=== PATIENT | male | born 1985 | race Caucasian/White ===

== ENCOUNTER 2016-06-28 15:36 | Emergency (ER) | payer OTHER ==
[2016-06-28 15:41] VITALS: BP 139/77; PULSE 81; TEMP 98.4; BMI 32.1
[2016-06-28] MEDS ORDERED: IBUPROFEN 600 MG TABLET (FP) PO ONE ×2 (17:25→17:28)
--- NOTE | 2016-06-28 17:30 | PDOC ---
History of Present Illness - General Chief Complaint: Injury Stated Complaint: RT HAND SWOLLEN Time Seen by Provider: 06/28/16 17:20 History Source: Patient Exam Limitations: No Limitations - History of Present Illness Initial Comments: 06/28/16 17:28 Chief complaint: Right wrist pain History of present illness: Pt. is a 30 year old male with no significant medical history here today c/o pain to rt. medial wrist with a superfical abrasion. Pt. reports that yesterday a heavy metal door closed hitting his rt. medial wrist. Pt. today is worse with swelling of rt. wrist, pain is worse with use of rt. hand and movement of fingers. He denies any numbness of rt. hand or wrist. 06/28/16 17:36 06/28/16 17:40 Occurred: reports: yesterday Severity: reports: moderate (rt. wrist ) Pain Location: reports: upper extremity (right wrist medial aspect, ) Method of Injury: Yes: direct blow (by a metla door ) Modifying Factors: improves with: immobilization (rt. and fingers rt. hand ) Past History - Past Medical History Allergies/Adverse Reactions: Allergies Allergy/AdvReac Type Severity Reaction Status Date / Time No Known Allergies Allergy Verified 06/28/16 15:40 Home Medications: Ambulatory Orders Ibuprofen [Motrin -] 600 mg PO Q6H PRN #21 tablet 06/28/16 Asthma: Yes - Immunization History Immunization Up to Date: Yes - Psycho/Social/Smoking Cessation Hx Anxiety: No Suicidal Ideation: No Smoking Status: No Smoking History: Never smoked Have you smoked in the past 12 months: No Number of Cigarettes Smoked Daily: 2 Information on smoking cessation initiated: No 'Breaking Loose' booklet given: 04/19/14 Hx Alcohol Use: No Drug/Substance Use Hx: No Substance Use Type: None Review of Systems - Review of Systems Able to Perform ROS?: Yes Constitutional: No: Symptoms Reported HEENTM: No: Symptoms Reported Respiratory: No: Symptoms reported Cardiac (ROS): No: Symptoms Reported ABD/GI: No: Symptoms Reported Musculoskeletal: Yes: Joint Pain (rt. medial wrist ), Joint Swelling (rt. wrist) Integumentary: Yes: Other (abrasion rt. medial wrist quarter size) Neurological: No: Symptoms reported *Physical Exam - Vital Signs Last Vital Signs Temp Pulse Resp BP Pulse Ox 98.4 F 81 18 139/77 99 06/28/16 15:38 06/28/16 15:38 06/28/16 15:38 06/28/16 15:38 06/28/16 15:38 - Physical Exam General Appearance: Yes: Appropriately Dressed Comments:: 06/28/16 23:14 right radial pulse 4 + Extremity: positive: Normal Capillary Refill, Normal Range of Motion (rt. wrist , all digits rt. hand ), Tender (rt. wrist ), Swelling (right wrist ) Integumentary: positive: Other (abrasion quarter size rt. medial wrist) Neurologic: positive: Normal Response, Respond to painful stimul (rt. wrist, hand ), Responsive. negative: Numbness, Sensory Deficit Procedures - Consent Consent obtained: From Patient - Splinting Splint Location: Right: Wrist Dean Bandage: 3" Sling: No Complications: No Medical Decision Making - Medical Decision Making 06/28/16 17:43 Pt. is a 30 year old male with no significant medical history here today c/o pain to rt. medial wrist with a superfical abrasion. Pt. reports that yesterday a heavy metal door closed hitting his rt. medial wrist. Pt. today is worse with swelling of rt. wrist, pain is worse with use of rt. hand and movement of fingers. He denies any numbness of rt. hand or wrist. R/O fracture rt.wrist superfical abrasion rt. medial wrist PLAN: ibuprofen 600 mg po now xray right wrist and hand no fracture noted 06/28/16 23:15 *DC/Admit/Observation/Transfer Diagnosis at time of Disposition: Abrasion Contusion of wrist, right Qualifiers: Encounter type: initial encounter Qualified Code(s): S60.211A - Contusion of right wrist, initial encounter - Discharge Dispostion Disposition: HOME Condition at time of disposition: Stable - Prescriptions Prescriptions: Ibuprofen [Motrin -] 600 mg PO Q6H PRN #21 tablet PRN Reason: Pain - Referrals Referrals: Toney Rodriguez MD [Staff Physician] - - Patient Instructions Additional Instructions: apply ice to right wrist every 2 hours while awake for 15 minutes each time apply dean wrap to right wrist during the day follow up with orthopedist if pain continues apply bacitracin ointment to abrasion twice daily after cleaning with antibacterial soap Patient voiced understanding of discharge instructions
== END 2016-06-28 18:17 | disposition home or self-care (01) ==
LOC: JERFT 15:36
DX: S60.211A Contusion of right wrist, initial encounter (principal); S60.811A Abrasion of right wrist, initial encounter; W22.8XXA Striking against or struck by other objects, initial encounter; Y93.89 Activity, other specified; Y92.89 Other specified places as the place of occurrence of the external cause
CPT/HCPCS: 73110-TC-RT; 73130-TC-RT; 99281-25

== ENCOUNTER 2017-12-02 21:58 | Emergency (ER) | payer OTHER ==
[2017-12-02 22:16] VITALS: BP 153/97; PULSE 65; TEMP 98.5; BMI 33.9
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
== END 2017-12-03 02:30 | disposition home or self-care (01) ==
LOC: JERFT 21:58 → JER 21:58
PROC: 2W3CX1Z Immobilization of Right Lower Arm using Splint (ICD-10-PCS; principal; 2017-12-02)
DX: S62.336A Displaced fracture of neck of fifth metacarpal bone, right hand, initial encounter for closed fracture (principal); W51.XXXA Accidental striking against or bumped into by another person, initial encounter; Y93.89 Activity, other specified; Y92.89 Other specified places as the place of occurrence of the external cause; Y99.0 Civilian activity done for income or pay
CPT/HCPCS: 29125; 73110-TC-RT-FY; 73130-TC-RT-FY; 99281-25

== ENCOUNTER 2017-12-11 09:57 | Day surgery (SDC) | payer OTHER ==
[2017-12-09 10:36] VITALS: BMI 33.9
[2017-12-11] MEDS ORDERED: ROPIVACAINE HCL 0.5% 30ML VIAL ONE (11:26)
[2017-12-11] MEDS ORDERED: MIDAZOLAM HCL 2 MG/2 ML SINGLE DOSE VIAL ONE (11:26)
[2017-12-11] MEDS ORDERED: ceFAZolin SODIUM 1 GM VIAL ONE (13:41)
[2017-12-11] MEDS ORDERED: PROPOFOL 20 ML ONE ×2 (13:41→13:47)
[2017-12-11] MEDS ORDERED: DEXAMETHASONE SOD PHOSPHATE 4 MG/1 ML VIAL ONE (14:44)
[2017-12-11] MEDS ORDERED: KETOROLAC TROMETHAMINE 30 MG/1 ML VIAL ONE (14:44)
[2017-12-11] MEDS ORDERED: ONDANSETRON 4 MG/2 ML VIAL ONE ×2 (14:44→15:20)
[2017-12-11] MEDS ORDERED: LIDOCAINE HCL/PF 2% SDV 5ML VIAL ONE (14:48)
[2017-12-11] MEDS ORDERED: ONDANSETRON 4 MG/2 ML VIAL IVPUSH PRN (14:53)
[2017-12-11] MEDS ORDERED: oxyCODONE HCL 5 MG TABLET PO PRN (14:53)
[2017-12-11] MEDS ORDERED: LACTATED RINGERS SOLUTION 1,000 ML IV SCH (15:00)
[2017-12-11 16:17] VITALS: TEMP 97.5
[2017-12-11 16:54] VITALS: BP 142/85; PULSE 57
--- NOTE | 2017-12-15 11:50 | OP ---
DATE OF OPERATION: 12/11/2017 PREOPERATIVE DIAGNOSES: 1. Right hamate fracture. 2. Right 4th metacarpal fracture. 3. Right complex, multiple carpometacarpal dislocations. POSTOPERATIVE DIAGNOSES: 1. Right hamate fracture. 2. Right 4th metacarpal fracture. 3. Right complex, multiple carpometacarpal dislocations. OPERATIVE PROCEDURE: 1. Open reduction/internal fixation of right hamate fracture. 2. Open reduction/internal fixation of right 4th metacarpal fracture. 3. Open reduction/internal fixation of complex, multiple carpometacarpal dislocations, right hand. SURGEON: Aidee Ignacio MD VENTURE CAPITAL ANALYST: HARDY Gold ANESTHESIA: Regional and general. COMPLICATIONS: None. ESTIMATED BLOOD LOSS: Minimal. INDICATION FOR PROCEDURE: The patient is a 32-year-old male with the above findings indicated for operative treatment. Risks, benefits, alternatives were discussed with the patient at length and proper informed consent was obtained. PROCEDURE: After proper identification of the patient and correct operative site, the patient was taken to operating room and placed supine on the operating table with prominences well-padded. Anesthesia was provided by the anesthesiologist, intravenous antibiotics were given, timeout procedure was performed. The right upper extremity was prepped and draped in the usual sterile fashion and a well-padded tourniquet was placed over the sterile prep. Esmarch bandage was used to exsanguinate the right upper extremity and the tourniquet inflated to 250 mmHg. A longitudinal incision was made in-line with the 4th and 5th carpometacarpal joints. The incision was taken sharply through the skin with blunt and sharp dissection through the subcutaneous tissues. The capsule of the 4th and 5th carpometacarpal joints was opened and the dislocations and fractures were noted. The 4th and 5th carpometacarpal and 4th metacarpal fractures were reduced into satisfactory position and then K-wires were placed across the 5th metacarpal, into the 4th metacarpal, and into the 3rd metacarpal, securing the reduction of the carpometacarpal joints as well as the 4th metacarpal. The hamate fracture was then reduced, obtaining intraarticular alignment, and this was held with an OsteoMed dorsal plate 1.6 mm. This was secured with multiple locking and nonlocking screws. Of note, in order to get the fracture properly buttressed, the angle of the plate was turned obliquely, which required close to the top of the capitohamate joint. Clinically, the screws were clearly not in the joint, although radiographs indicated possible penetration. It was decided due to the lack of mobility of this joint that the benefit of leaving the plate in at this time at this position outweighed any risks. The wound was then irrigated with copious amounts of normal saline. Final x-rays were taken to confirm the proper reduction of fracture and sizing of hardware. The wound was irrigated with saline and repaired, including the capsule, with 3-0 Vicryl and 4-0 nylon. Sterile dressings and a splint were placed. The pins were bent and cut short outside of the skin. The patient was reversed from anesthesia and brought to the recovery room in stable condition. He tolerated the procedure well. Splint had been placed prior to awakening the patient. James Pulliam, the occupational therapist assistant, was integral throughout the procedure. The procedure could not have been performed without a skilled operative occupational therapist assistant. AIDEE IGNACIO M.D. [id number]
== END 2017-12-11 16:50 | disposition home or self-care (01) ==
LOC: FASU 09:57
PROVIDERS: ATTEND Orthopaedic Surgery Hand Surgery
PROC: 0PSP04Z Reposition Right Metacarpal with Internal Fixation Device, Open Approach (ICD-10-PCS; 2017-12-11)
PROC: 0RSS04Z Reposition Right Carpometacarpal Joint with Internal Fixation Device, Open Approach (ICD-10-PCS; 2017-12-11)
PROC: 0PSM04Z Reposition Right Carpal with Internal Fixation Device, Open Approach (ICD-10-PCS; principal; 2017-12-11 11:30)
DX: S62.141A Displaced fracture of body of hamate [unciform] bone, right wrist, initial encounter for closed fracture (principal); S62.304A Unspecified fracture of fourth metacarpal bone, right hand, initial encounter for closed fracture; S63.054A Dislocation of other carpometacarpal joint of right hand, initial encounter; X58.XXXA Exposure to other specified factors, initial encounter; Y93.9 Activity, unspecified; Y92.9 Unspecified place or not applicable
CPT/HCPCS: 73130-TC-RT-FY; 94760

== ENCOUNTER 2018-08-08 06:36 | Emergency (ER) | payer OTHER ==
[2018-08-08 06:48] VITALS: BMI 33.9
[2018-08-08] MEDS ORDERED: morphine CARPU-JECT 4 MG/1 ML DISP.SYRIN IVPUSH ONE ×2 (08:42→10:15)
[2018-08-08] MEDS ORDERED: morphine SULFATE 4 MG/ML VIAL ONE ×2 (09:04→10:27)
[2018-08-08 09:29] LABS: BASO % 0.7 % (0-2.0); EOS % 4.4 % (0-4.5); HEMATOCRIT 41.6 % (35.4-49); HEMOGLOBIN 14.2 GM/dL (11.7-16.9); LYMPH % 33.2 % (8-40); MCH 28.8 pg (25.7-33.7); MCHC 34.2 g/dl (32.0-35.9); MEAN CELL VOLUME 84.2 fl (80-96); MONO % 11.2 % (3.8-10.2); NEUT % 50.5 % (42.8-82.8); PLATELET COUNT 323 K/MM3 (134-434); RBC 4.94 M/mm3 (4.00-5.60); RDW 13.9 % (11.9-15.9); WHITE BLOOD COUNT 7.3 K/mm3 (4.0-10.0)
[2018-08-08 09:37] LABS: INR 0.99 (0.83-1.09); PROTHROMBIN TIME (PATIENT) 11.7 SEC (9.7-13.0)
[2018-08-08 09:39] LABS: ACTIVATED PTT 28.1 SECONDS (25.2-36.5)
[2018-08-08 09:53] LABS: ALK PHOS 62 U/L (45-117); ANION GAP 5 MMOL/L (8-16); BILIRUBIN,TOTAL 0.5 mg/dL (0.2-1); BLOOD UREA NITROGEN 7 mg/dL (7-18); CHLORIDE 105 mmol/L (98-107); CO2 27 mmol/L (21-32); CREATININE 0.6 mg/dL (0.55-1.3); GLUCOSE,RANDOM 93 mg/dL (74-106); POTASSIUM 4.7 mmol/L (3.5-5.1); SGOT/AST 26 U/L (15-37); SGPT/ALT 34 U/L (13-61); SODIUM 138 mmol/L (136-145); TOT PROT 7.4 g/dl (6.4-8.2)
[2018-08-08 11:50] VITALS: TEMP 97.8
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
[2018-08-08] MEDS ORDERED: KETOROLAC TROMETHAMINE 30 MG/1 ML VIAL IVPUSH ONE (12:44)
[2018-08-08] MEDS ORDERED: KETOROLAC TROMETHAMINE 30 MG/1 ML VIAL ONE (13:24)
[2018-08-08 14:46] VITALS: BP 115/65; PULSE 71
== END 2018-08-08 14:46 | disposition home or self-care (01) ==
LOC: JER 06:36
PROC: 3E0333Z Introduction of Anti-inflammatory into Peripheral Vein, Percutaneous Approach (ICD-10-PCS; principal; 2018-08-08)
PROC: 3E033NZ Introduction of Analgesics, Hypnotics, Sedatives into Peripheral Vein, Percutaneous Approach (ICD-10-PCS; 2018-08-08)
DX: J98.11 Atelectasis (principal); S20.212A Contusion of left front wall of thorax, initial encounter; V87.8XXA Person injured in other specified noncollision transport accidents involving motor vehicle (traffic), initial encounter; Y93.89 Activity, other specified; Y92.410 Unspecified street and highway as the place of occurrence of the external cause
CPT/HCPCS: 36415; 71046-TC-FY; 71250-TC; 74177-TC; 80053; 83605; 85025; 85610; 85730; 96374; 96375; 96376; 99283-25

== ENCOUNTER 2019-09-04 21:36 | Emergency (ER) | payer OTHER ==
[2019-09-04 21:47] VITALS: BP 116/77; PULSE 79; TEMP 97.5; BMI 32.5
[2019-09-04] MEDS ORDERED: KETOROLAC TROMETHAMINE 30 MG/1 ML VIAL IM ONE (22:42)
--- NOTE | 2019-09-04 22:49 | PDOC ---
History of Present Illness - General Chief Complaint: Back Pain Stated Complaint: BACK PAIN Time Seen by Provider: 09/04/19 22:06 History Source: Patient Exam Limitations: No Limitations - History of Present Illness Initial Comments: 09/04/19 22:44 CHIEF COMPLAINT: Lower back pain HISTORY OF PRESENT ILLNESS: 34-year-old male with history of slipped disc in the lumbar spine presents emergency department for evaluation of lower back pain shooting down the back of his right leg. He denies any neurosensory deficits, incontinence of bladder or bowel, urinary retention, saddle anesthesia, foot drop, history of IV drug use or cancer. Patient reports she has been sleeping on a couch the past 2 nights as his son is sick and is sleeping in his bed. 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 Reports he does not sit on his wallet. REVIEW OF SYSTEMS: GENERAL: Afebrile, denies any weakness RESPIRATORY: No cough, wheezing, or hemoptysis. CARDIAC: No chest pain or shortness of breath MUSCULOSKELETAL: Pain to generalized lower back. No point tenderness. Pain worse on right than left. SKIN : No erythema, no bruising, no deformity. GI/: Denies any abdominal pain, no urinary difficulty, incontinence or urinary retention. RECTAL: Denies any difficulty this A.m. NEUROLOGICAL: Denies any numbness or tingling. No neurosensory deficits. PHYSICAL EXAM: GENERAL: The patient is awake, alert, and fully oriented, in no acute distress. RESPIRATORY: Lungs clear bilaterally, no rhonchi wheezes or crackles CARDIAC: S1-S2 audible, no murmur rub or gallop MUSCULOSKELETAL: Pain to generalized lower back, nonradiating, no tingling or sensory deficit. Less than 2 second cap refill, +2 pedal pulses. No spinal point tenderness. Normal reflexive and no deficits to sensation or strength. GI/: Abdomen soft, nontender, nondistended. No rebound tenderness. No masses palpable. RECTAL: Deferred patient with no neurological findings SKIN: Warm, Dry, normal turgor, no erythema, no edema no bruising. Past History - Past Medical History Allergies/Adverse Reactions: Allergies Allergy/AdvReac Type Severity Reaction Status Date / Time No Known Allergies Allergy Verified 09/04/19 21:43 Home Medications: Ambulatory Orders Oxycodone HCl/Acetaminophen [Percocet 5-325 mg Tablet] 1 tab PO Q6H PRN #15 tablet MDD 3 08/08/18 Methylprednisolone [Medrol Dose Benjamin] 4 mg PO ASDIR #21 tablet 09/05/19 Anemia: No Asthma: Yes (CHILDHOOD) Cancer: No Cardiac Disorders: No CVA: No COPD: No CHF: No Dementia: No Diabetes: No GI Disorders: No Disorders: No HTN: No Hypercholesterolemia: No Liver Disease: No Thyroid Disease: No - Immunization History Immunization Up to Date: Yes - Psycho Social/Smoking Cessation Hx Smoking Status: No Smoking History: Never smoked Have you smoked in the past 12 months: Yes Number of Cigarettes Smoked Daily: 2 If you are a former smoker, when did you quit?: SMOKED "SOCIALLY" A LONG TIME AGO 'Breaking Loose' booklet given: 04/19/14 Hx Alcohol Use: No Drug/Substance Use Hx: No Substance Use Type: Alcohol Hx Substance Use Treatment: No *Physical Exam - Vital Signs Last Vital Signs Temp Pulse Resp BP Pulse Ox 97.5 F L 79 18 116/77 99 09/04/19 21:40 09/04/19 21:40 09/04/19 21:40 09/04/19 21:40 09/04/19 21:40 Medical Decision Making - Medical Decision Making 09/04/19 22:48 A/P: 34-year-old male with acute right-sided back pain radiating down the back of his right leg No CVA tenderness noted Patient denies urinary symptoms Most likely lower back pain with sciatica but will get a urine analysis- low threshold for imaging if blood is present Toradol 30 mg IM now Reassess 09/04/19 23:56 Patient minimal relief of pain after receiving Toradol. Patient has not sitting down and has been restless. While patient has not given us a urine sample I will get a noncontrast CT of the abdomen and pelvis to rule out kidney stone. Reassess 09/05/19 01:18 CT scan is read by imaging on-call: Lower chest: Within normal limits. Abdomen: Liver-within normal limits Bile ducts-within normal limits Gallbladder within normal limits Pancreas within normal limits Spleen-small subcapsular calcification with adjacent small subcapsular fluid collection likely reflecting a sequela of remote healed injury. Adrenals within normal limits Kidneys no evidence of hydronephrosis or nephrolithiasis. Stomach within normal limits Bowel no evidence of small bowel obstruction or mass. Normal appendix is identified. Reproductive organs within normal limits Bladder decompressed Aorta is within normal limits without aneurysm Retroperitoneum within normal limits Bones no suspicious osseous lesions. Lidocaine patch Discharge home to follow-up with primary doctor for reevaluation. I discussed the physical exam findings, ancillary test results and final diagnoses with the patient. I answered all of the patient's questions. The patient was satisfied with the care received and felt comfortable with the discharge plan and treatment plan. The patient will call their primary care physician within 24 hours to arrange follow-up and will return to the Emergency Department with any new, persistent or worsening symptoms. Portions of this note have been documented using voice recognition software. As a result, errors may occur in the recapper process. Effort has been made to correct all grammatical and recapper error, but some may have been missed which may produce sporadic inaccurate recapper or nonsensical phrases. Discharge - Discharge Information Problems reviewed: Yes Clinical Impression/Diagnosis: Lower back pain Qualifiers: Chronicity: acute Back pain laterality: right Sciatica presence: with sciatica Sciatica laterality: sciatica of right side Qualified Code(s): M54.41 - Lumbago with sciatica, right side Condition: Stable Disposition: HOME - Admission No - Additional Discharge Information Prescriptions: Methylprednisolone [Medrol Dose Benjamin] 4 mg PO ASDIR #21 tablet - Follow up/Referral Referrals: Johan Green MD [Primary Care Provider] - - Patient Discharge Instructions Additional Instructions: Rest. Take Medrol Dosepak as directed. Take Tylenol or naproxen as needed for pain. Follow manufacturers instructions for appropriate dosage. Warm moist heat applied to your back may help alleviate pain. Return to emergency department for discoloration of the foot, numbness or tingling to the foot, worsening pain, or any other concerns. Thank you very much for choosing us to provide your emergent healthcare needs. - Post Discharge Activity Work/Back to School Note: Back to Work
[2019-09-04] MEDS ORDERED: KETOROLAC TROMETHAMINE 30 MG/1 ML VIAL ONE (22:50)
[2019-09-05] MEDS ORDERED: LIDOCAINE 5% TOPICAL PATCH TP ONE (01:18)
[2019-09-05] MEDS ORDERED: LIDOCAINE 5% TOPICAL PATCH ONE (01:32)
[2019-09-05] MEDS ORDERED: LIDOCAINE PATCH REMOVAL MC SCH (22:00)
== END 2019-09-05 01:42 | disposition home or self-care (01) ==
LOC: JER 21:36
PROC: 3E0233Z Introduction of Anti-inflammatory into Muscle, Percutaneous Approach (ICD-10-PCS; principal; 2019-09-04)
DX: M54.41 Lumbago with sciatica, right side (principal)
CPT/HCPCS: 74176-TC; 99284-25

== ENCOUNTER 2022-08-17 11:15 | Emergency (ER) | payer OTHER ==
[2022-08-17 11:21] VITALS: BP 137/88; PULSE 87; RESP 18; TEMP 97.9; BMI 35.2
[2022-08-17] MEDS ORDERED: KETOROLAC TROMETHAMINE 30 MG/1 ML VIAL IM ONE (12:39)
[2022-08-17] MEDS ORDERED: ACETAMINOPHEN 325 MG TABLET (FP) PO ONE (12:39)
[2022-08-17] MEDS ORDERED: LIDOCAINE 5% TOPICAL PATCH TP ONE (12:39)
[2022-08-17] MEDS ORDERED: KETOROLAC TROMETHAMINE 30 MG/1 ML VIAL ONE (12:45)
[2022-08-17] MEDS ORDERED: LIDOCAINE 5% TOPICAL PATCH ONE (12:45)
[2022-08-17] MEDS ORDERED: ACETAMINOPHEN 325 MG TABLET (FP) ONE (12:45)
[2022-08-17] MEDS ORDERED: LIDOCAINE PATCH REMOVAL MC ONE (22:00)
== END 2022-08-17 13:49 | disposition home or self-care (01) ==
LOC: JERFT 11:15
PROC: 3E0233Z Introduction of Anti-inflammatory into Muscle, Percutaneous Approach (ICD-10-PCS; principal; 2022-08-17)
DX: M54.50 Low back pain, unspecified (principal)
CPT/HCPCS: 96372; 99284-25

== ENCOUNTER 2022-11-06 01:08 | Emergency (ER) | payer OTHER ==
[2022-11-06 01:19] VITALS: BP 138/88; PULSE 70; RESP 18; TEMP 97.8; BMI 38.0
[2022-11-06] MEDS ORDERED: AMOX TR/POT CLAV 875MG/125MG TABLETS (FP) PO ONE (01:34)
[2022-11-06] MEDS ORDERED: DEXAMETHASONE SOD PHOSPHATE 10 MG/1 ML VIAL IM ONE (01:40)
[2022-11-06] MEDS ORDERED: AMOX TR/POT CLAV 875MG/125MG TABLETS (FP) ONE (02:08)
[2022-11-06] MEDS ORDERED: DEXAMETHASONE SOD PHOSPHATE 10 MG/1 ML VIAL ONE (02:09)
== END 2022-11-06 02:06 | disposition home or self-care (01) ==
LOC: JER 01:08
PROC: 3E023GC Introduction of Other Therapeutic Substance into Muscle, Percutaneous Approach (ICD-10-PCS; principal; 2022-11-06)
DX: H65.02 Acute serous otitis media, left ear (principal)
CPT/HCPCS: 99284-25; J1100

== ENCOUNTER 2023-05-20 13:50 | Emergency (ER) | payer OTHER ==
[2023-05-20 14:16] VITALS: BP 136/80; PULSE 64; RESP 16; TEMP 98.1; BMI 37.3
[2023-05-20] MEDS ORDERED: KETOROLAC TROMETHAMINE 30 MG/1 ML VIAL IM ONE (15:31)
[2023-05-20] MEDS ORDERED: KETOROLAC TROMETHAMINE 30 MG/1 ML VIAL ONE (16:11)
== END 2023-05-20 16:14 | disposition home or self-care (01) ==
LOC: JERFT 13:50
PROC: 3E0233Z Introduction of Anti-inflammatory into Muscle, Percutaneous Approach (ICD-10-PCS; principal; 2023-05-20)
DX: M25.511 Pain in right shoulder (principal)
CPT/HCPCS: 73030-TC-RT-FY; 96372; 99284-25